=== PATIENT | female | born 1975 | race Hispanic/Latino ===

== ENCOUNTER 2020-03-31 14:35 | Emergency (ER) | payer OTHER, MEDICARE ==
[2020-03-31] MEDS ORDERED: ACETAMINOPHEN 325 MG TAB ONE (15:20)
== END 2020-03-31 16:42 | disposition home or self-care (01) ==
LOC: EDH 14:35
DX: S86.912A Strain of unspecified muscle(s) and tendon(s) at lower leg level, left leg, initial encounter (principal); S76.912A Strain of unspecified muscles, fascia and tendons at thigh level, left thigh, initial encounter; V49.59XA Passenger injured in collision with other motor vehicles in traffic accident, initial encounter; Y93.89 Activity, other specified; Y92.89 Other specified places as the place of occurrence of the external cause; Y99.8 Other external cause status
CPT/HCPCS: 73552; 73590